=== PATIENT | female | born 1935 | race Caucasian/White ===

== ENCOUNTER 2018-11-03 07:59 | Day surgery (SDC) | payer MEDICARE, OTHER ==
[~2018-11-03] VITALS: Ht 175.3 cm; Wt 70.6 kg
[2018-11-03] VITALS (9 sets, daily range): BP systolic 100–160; BP diastolic 53–82
[2018-11-03] MEDS ORDERED: normal saline 1000ml 1,000 ML IV PRN (08:20)
[2018-11-03] MEDS ORDERED: ceFAZolin 2gm in dextrose, iso 100 ML IV ONE (08:20)
[2018-11-03] MEDS ORDERED: HYDR12.5 PO (08:41)
[2018-11-03] MEDS ORDERED: SYN0.088T PO (08:41)
[2018-11-03] MEDS ORDERED: LISI1TAB11 PO (08:41)
[2018-11-03] MEDS ORDERED: METO-395 PO (08:41)
[2018-11-03] MEDS ORDERED: ASPI-611 PO (08:43)
[2018-11-03] MEDS ORDERED: METF500T PO (08:43)
[2018-11-03] MEDS ORDERED: CHOL400T14 PO (08:44)
[2018-11-03] MEDS ORDERED: normal saline 1000ml 1,000 ML IV SCH ×2 (09:51→11:28)
[2018-11-03] MEDS ORDERED: midazolam 2 mg/2 ml injection IV PRN (09:55)
[2018-11-03] MEDS ORDERED: LIDOcaine 1%/PF 5ML 10 MG/ML VIAL SQ ONE (09:55)
[2018-11-03] MEDS ORDERED: diphenhydrAMINE 50 mg/ml inj IV ONE (09:55)
[2018-11-03] MEDS ORDERED: fentaNYL/PF 50MCG/1 ML 2ML syringe IV PRN (09:55)
[2018-11-03] MEDS ORDERED: LIDOcaine 1%/PF 5ML 10 MG/ML VIAL ONE ×2 (10:04→10:34)
[2018-11-03] MEDS ORDERED: iohexol 300 MG/1 ML 50ml polymer ONE (10:04)
[2018-11-03] MEDS ORDERED: fentaNYL/PF 50MCG/1 ML 2ML syringe ONE ×2 (10:08→10:50)
[2018-11-03] MEDS ORDERED: midazolam 2 mg/2 ml injection ONE (10:08)
[2018-11-03] MEDS ORDERED: diphenhydrAMINE 50 mg/ml inj ONE (10:08)
[2018-11-03] MEDS ORDERED: HYDROcodone/acetaminophen 5mg/325mg tablet PO PRN (11:30)
== END 2018-11-03 14:45 | disposition home or self-care (01) ==
LOC: SSTAY O 07:59
PROVIDERS: ATTEND Radiology Diagnostic Radiology
DX: S32.018A Other fracture of first lumbar vertebra, initial encounter for closed fracture (principal); M54.5 Low back pain; M54.6 Pain in thoracic spine; E11.9 Type 2 diabetes mellitus without complications; I10 Essential (primary) hypertension; E03.9 Hypothyroidism, unspecified; Z79.891 Long term (current) use of opiate analgesic; Z90.49 Acquired absence of other specified parts of digestive tract; Z87.19 Personal history of other diseases of the digestive system; Z90.710 Acquired absence of both cervix and uterus; Z87.442 Personal history of urinary calculi; Z87.39 Personal history of other diseases of the musculoskeletal system and connective tissue; Z79.82 Long term (current) use of aspirin; Z79.84 Long term (current) use of oral hypoglycemic drugs; Z79.899 Other long term (current) drug therapy; Z98.890 Other specified postprocedural states; W19.XXXA Unspecified fall, initial encounter; Y93.89 Activity, other specified; Y92.89 Other specified places as the place of occurrence of the external cause; Y99.8 Other external cause status
CPT/HCPCS: 22514; 82948; 99152; 99153; C1713; J0690; J1200; J2001; J2250; J3010; J7030; Q9967; A4620